=== PATIENT | male | born 1930 | race Hispanic/Latino ===

== ENCOUNTER 2018-09-05 17:09 | Inpatient (IN) | payer OTHER | END 2018-09-14 16:15 | disposition home or self-care (01) | LOC: 2CH 17:09 → 2DH 09-06 15:47 | DX: I21.4 Non-ST elevation (NSTEMI) myocardial infarction (principal); I48.92 Unspecified atrial flutter; Q21.1 Atrial septal defect; I47.1 Supraventricular tachycardia; E44.1 Mild protein-calorie malnutrition; D68.59 Other primary thrombophilia; I42.9 Cardiomyopathy, unspecified; I49.5 Sick sinus syndrome; I48.91 Unspecified atrial fibrillation; I45.9 Conduction disorder, unspecified; R00.2 Palpitations; I35.0 Nonrheumatic aortic (valve) stenosis; Z95.0 Presence of cardiac pacemaker; H11.32 Conjunctival hemorrhage, left eye ==